=== PATIENT | male | born 1950 | race Caucasian/White ===

== ENCOUNTER 2019-03-09 20:58 | Inpatient (IN) | payer MEDICARE, OTHER ==
[~2019-03-09] VITALS: Ht 185.4 cm; Wt 65.8 kg
[2019-03-09] MEDS ORDERED: ONDANSETRON HCL INJ 2MG/ML 2ML 2 MG/ML VIAL IV STA (21:10)
[2019-03-09] MEDS ORDERED: MORPHINE SULFATE INJ 4 MG/ML INJ 1ML IV STA (21:10)
--- NOTE | 2019-03-09 21:10 | NUR ---
PT REFUSES BIPAP STATING "I DONT DO MASKS OR ANYTHING ON MY FACE"; PT ALSO REFUSED ABG; ER MD NOTIFIED AND SPOKE WITH PT; PT SIGNED AMA FORM FOR BIPAP AND ABG;
[2019-03-09] MEDS ORDERED: ASPIRIN 325 MG TAB PO ONE (21:15)
[2019-03-09 21:47] LABS: BASOPHILS % 0.2 % (0.0-1.0); EOSINOPHILS # (AUTO) 0.1 (0.0-0.4); EOSINOPHILS % 1.2 % (0.0-6.0); HEMATOCRIT 30.9 % (38.2-49.6); HEMOGLOBIN 8.7 g/dL (14.0-18.0); LYMPHOCYTES # (AUTO) 0.9 (1.0-3.2); LYMPHOCYTES % 10.6 % (18.0-39.1); MEAN CORPUSCULAR HEMOGLOBIN 20.9 pg (28-32); MEAN CORPUSCULAR HGB CONC 28.2 g/dL (31-35); MEAN CORPUSCULAR VOLUME 74.3 fL (81-99); NEUTROPHILS # (AUTO) 6.6 (2.1-6.9); NEUTROPHILS % 76.4 % (38.7-80.0); PLATELET COUNT 274 x10e3/uL (140-360); RED BLOOD COUNT 4.16 x10e6/uL (4.3-5.7); RED CELL DISTRIBUTION WIDTH 19.4 % (11.7-14.4)
[2019-03-09 22:04] LABS: ALBUMIN 2.8 g/dL (3.5-5.0); ALBUMIN/GLOBULIN RATIO 0.7 (0.8-2.0); ALKALINE PHOSPHATASE 136 IU/L (40-150); ANION GAP 14.5 mmol/L (8-16); BLOOD UREA NITROGEN 12 mg/dL (7-26); BUN/CREATININE RATIO 16 (6-25); CALCIUM 9.4 mg/dL (8.4-10.2); CARBON DIOXIDE 40 mmol/L (22-29); CHLORIDE 91 mmol/L (98-107); CREATINE KINASE 27 IU/L (30-200); CREATININE, SERUM 0.75 mg/dL (0.72-1.25); EST GLOMERULAR FILTRATION RATE > 60 ML/MIN (60-); GLUCOSE 125 mg/dL (74-118); POTASSIUM 4.5 mmol/L (3.5-5.1); SODIUM 141 mmol/L (136-145)
[2019-03-09 22:06] LABS: ALANINE AMINOTRANSFERASE < 6 IU/L (0-55)
--- NOTE | 2019-03-09 22:12 | Diagnostic Imaging Report ---
Examination: Single AP view of the chest. COMPARISON: None. INDICATION: Chest pain DISCUSSION: The lungs are well-inflated. Moderate right pleural effusion with airspace opacity of the lower and middle lobes. Enlargement of the cardiac silhouette with postsurgical changes of the mediastinum including multiple surgical clips and median sternotomy wires. Prominence of the pulmonary interstitium. No acute osseous abnormalities. Degenerative arthrosis of the acromioclavicular and glenohumeral joints. Cylindrical radiopacity along the left chest wall presumably external to the patient. IMPRESSION: Enlargement of the cardiac silhouette with interstitial pulmonary edema and a moderate right pleural effusion. Right lower and middle lobe airspace disease likely reflects passive atelectasis. Signed by: Dr. Morris Block M.D. on 03/09/2019 10:09 PM
[2019-03-09] MEDS ORDERED: ALBUTEROL/IPRATROPIUM 3 ML NEB NEB ONE (22:15)
[2019-03-09] MEDS ORDERED: AMIODARONE HCL 150 MG/100 ML BAG IV ONE (22:30)
[2019-03-09] MEDS ORDERED: AMIODARONE HCL 900 MG in DEXTROSE 5% 500ML 500 ML IV SCH (22:30)
[2019-03-09] MEDS ORDERED: MORPHINE SULFATE INJ 4 MG/ML INJ 1ML IV PRN (22:45)
[2019-03-09] MEDS ORDERED: AMIODARONE 900MG 500 ML IV SCH (22:45)
[2019-03-09] MEDS ORDERED: ONDANSETRON HCL INJ 2MG/ML 2ML 2 MG/ML VIAL IV PRN (22:45)
[2019-03-09] MEDS ORDERED: LEVOFLOXACIN 750MG/D5W 150ML 150 ML IV ONE (22:45)
[2019-03-09] MEDS ORDERED: AMIODARONE HCL 900 MG in DEXTROSE 5% 500ML 500 ML IV STA (23:24)
[2019-03-09] MEDS ORDERED: AMIODARONE HCL 150MG 100 ML ONE (23:36)
--- NOTE | 2019-03-09 23:40 | NUR ---
PT LEFT ROOM, D/C HIMSELF FROM MONITOR AND WAS FOUND OUTSIDE; ER MD AWARE; PT STATES "I WILL FIND A WAY TO SMOKE. YOU CANT STOP ME"
--- NOTE | 2019-03-10 00:31 | NUR ---
PT AGITATED STATING "I AM STRESSED. I EITHER GO TO MY ROOM OR I GO HOME" PT INFORMED THAT RN NEEDS TO GIVE REPORT BEFORE TRANSPORT AND PT STATES "WELL WHY DONT YOU GO AND FUCKING DO IT THEN?" - PT AGRESSIVE TOWARDS STAFF AND YELLING AT PEOPLE WALKING BY ROOM;
[2019-03-10 01:00] VITALS: BP 107/73
[2019-03-10] MEDS ORDERED: DEXTROSE 50% SYRINGE 50 ML IV PRN (01:00)
[2019-03-10] MEDS ORDERED: ALBUTEROL SULF 0.083% NEB SOLN 3 ML NEB NEB PRN (01:15)
[2019-03-10] MEDS ORDERED: IPRATROPIUM BROMIDE 0.02% 2.5 ML NEB NEB PRN (01:15)
[2019-03-10 01:39] VITALS: BP 107/73
[2019-03-10 02:00] VITALS: BP 92/48
[2019-03-10] MEDS ORDERED: MELATONIN3 MG PO (02:07)
[2019-03-10] MEDS ORDERED: NITROGLYCERIN0.4 MG SL (02:07)
[2019-03-10] MEDS ORDERED: METFORMIN HCL500 MG PO (02:07)
[2019-03-10] MEDS ORDERED: TRAZODONE HCL50 MG PO (02:07)
[2019-03-10] MEDS ORDERED: FUROSEMIDE20 MG PO (02:07)
[2019-03-10] MEDS ORDERED: RANEXA500 MG PO (02:07)
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
[2019-03-10 04:00] VITALS: BP 97/64
[2019-03-10 05:00] VITALS: BP 106/60
--- NOTE | 2019-03-10 05:00 | NUR ---
Pt has again removed EKG monitoring equipment therefore amiodarone gtt has been turned off as it is standard of practice that ekg monitoring must be in place during administration. Dr. Narendra Dietz is at the bedside and aware of this.
[2019-03-10] MEDS ORDERED: METHYLPREDNISOLONE SOD SUCC 125 MG/2ML VIAL IV SCH ×2 (06:00)
--- NOTE | 2019-03-10 06:08 | Diagnostic Imaging Report ---
Examination: Single AP view of the chest. COMPARISON: 03/09/2019 INDICATION: CHF DISCUSSION: The left lateral hemithorax is incompletely imaged. Unchanged moderate right pleural effusion with lower and middle lobe airspace opacities. Stable enlargement of the cardiac silhouette with postsurgical changes of the mediastinum. Interstitial prominence is also unchanged. No new consolidation. No acute osseous abnormality. IMPRESSION: Overall stable findings compatible with fluid overload. Signed by: Dr. Morris Block M.D. on 03/10/2019 6:05 AM
[2019-03-10] MEDS: ALBUTEROL SULF 0.083% NEB SOLN 3 ML NEB NEB SCH ×2 (06:45→11:00)
--- NOTE | 2019-03-10 07:00 | NUR ---
Report given to Manny Scanlon RN. Pt continues to refuse all treatments and monitoring equipment. Pt is sitting on his walker and only allowing us to place O2 NC at 3 L on him.
[2019-03-10] MEDS ORDERED: INSULIN REGULAR, HUMAN 100 UNIT/1 ML 3ML VIAL SQ SCH (07:30)
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
[2019-03-10] MEDS ORDERED: FUROSEMIDE INJ 10 MG/ML 4 ML VIAL IV SCH (09:00)
--- NOTE | 2019-03-10 09:01 | NUR ---
Patient refused all treatment, patient said to get out of his way and that he was going outside to smoke. Patient became very agitated and continued to walk outside despite staff attempts to deescalate the situation. Dr. Sanderson tried to talk to the patient on the phone but the patient refused. Patient is now back in his room.
[2019-03-10] MEDS ORDERED: FUROSEMIDE INJ 10 MG/ML 2 ML VIAL IV SCH (11:15)
--- NOTE | 2019-03-10 12:22 | NUR ---
patient expressed the desire to be a full DNAR witnessed by myself, Dr. Sanderson and Dr. Vides
[2019-03-10] MEDS ORDERED: ACETAMINOPHEN 325 MG TAB PO PRN (12:30)
--- NOTE | 2019-03-10 12:32 | NUR ---
Patient transferred to the floor from the ICU. It was reported from ICU nurse that patient has been refusing all care, labs, meds, tele etc. MD is aware. Patient is now on the floor and states he will allow labs to be drawn and take medications. He is oriented x 3 and awake. He is sitting up in wheelchair, 3lNC. Patient was oriented to the room and explained how to use the call light. He denies needing anything at this time.
--- NOTE | 2019-03-10 13:14 | NUR ---
melter supervisor electric arc furnace called and said patient is downstairs in the lobby and has signed AMA paperwork. Patient continues to refuse treatment and go outside and smoke.
--- NOTE | 2019-03-10 14:32 | Progress Note ---
DATE: Quick Progress Note SUBJECTIVE: The patient this morning wanted to leave against medical advice on several occasions and refuses to stay inside the hospital. He wants to go outside and smoke. He is trying multiple times in terms of leaving the hospital against medical advice. I cannot hold him against his will. I recommended that he is not advisable for him to be discharged due to the fact that he is hypoxic and he was found to be in atrial fibrillation with RVR. My advice to him was for him to stay very compliant and to stay at the hospital to get treated. He has been very verbally and physically abusive to the nursing staff. I have received several phone calls in relation to his behavior. I had a long discussion with him with the nurse present about him being much more compliant and having better behavior. He verbalized he will, and we will continue to follow him very closely. I advised him not to leave against medical advice. MD CARLOS Carbajal/KENYATTA /[id number]
--- NOTE | 2019-03-10 15:06 | NUR ---
PULMONARY MEDICINE DATE OF ENCOUNTER: 03/10/19 SUBJECTIVE Patient was seen during the night. Patient was having the need to get up and go smoking. He would refuse to stay seated, incurring a fall risk since he had many wires attached to him in the ER. He would often stay standing, hunched over rather than sitting/laying down. He started cursing at staff later. REVIEW OF SYSTEMS: no headaches, no bleed PHYSICAL EXAMINATION: VITAL SIGNS: Vital signs reviewed per the electronic record GENERAL: Alert, talkative HEENT: Normocephalic and atraumatic. NECK: Supple. Throat midline. LUNGS: Bilateral air entry moderate, although limited effort and tough to evaluate. CARDIOVASCULAR: S1 and S2. No murmurs, rubs, or gallops. ABDOMEN: Soft, sensitive but nontender EXTREMITIES: No clubbing. No cyanosis. 2 - 3+ edema. INTEGUMENT: There are stasis changes to legs. no weeping LABORATORY DATA: refused IMPRESSION AND PLAN: 1. Acute/chronic respiratory failure, on oxygen. BiPAP intolerant. 2. Abnormal chest radiography, pulmonary edema suggested. 3. Moderate right-sided pleural effusion. 4. Possible pneumonia. 5. Atrial fibrillation with mildly rapid ventricular rate. 6. History of esophageal cancer May 2018, status post chemotherapy and radiation. 7. Chronic heart failure. 8. Limited medical history. 9. Chronic smoking. Oxygen per protocol Amiodarone drip is ongoing. Diuresis as tolerated. We will consider him for thoracentesis Patient later left AMA Thank you very much, Dr. Sanderson, for allowing me a chance to participate in the care of Mr. Mccarthy. Please call for any questions.
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
[2019-03-10] MEDS ORDERED: FUROSEMIDE 20 MG TAB PO SCH (17:00)
[2019-03-10] MEDS ORDERED: METOPROLOL TARTRATE 25 MG TAB PO SCH ×2 (17:00)
[2019-03-10] MEDS ORDERED: RANOLAZINE 500 MG TABSR PO SCH (17:00)
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
[2019-03-10] MEDS ORDERED: TRAZODONE HCL 50 MG TAB PO SCH (21:00)
[2019-03-10] MEDS ORDERED: LEVOFLOXACIN 500MG/D5W 100ML 100 ML IV SCH (22:00)
[2019-03-11] MEDS ORDERED: NICOTINE 21 MG/EA PATCH TOP SCH (09:00)
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
== END 2019-03-10 13:31 | disposition home or self-care (01) | DRG 291 ==
LOC: ER 20:58 → ERHOLD 23:36 → ICU 03-10 01:00 → MED/SURG2 03-10 12:18
PROVIDERS: ADMIT Internal Medicine; ATTEND Internal Medicine
DX: I11.0 Hypertensive heart disease with heart failure (principal); J96.20 Acute and chronic respiratory failure, unspecified whether with hypoxia or hypercapnia; J18.9 Pneumonia, unspecified organism; J44.0 Chronic obstructive pulmonary disease with (acute) lower respiratory infection; J44.1 Chronic obstructive pulmonary disease with (acute) exacerbation; F17.210 Nicotine dependence, cigarettes, uncomplicated; Z99.81 Dependence on supplemental oxygen; I48.2 Chronic atrial fibrillation; Z91.14 Patient's other noncompliance with medication regimen; I50.813 Acute on chronic right heart failure; I27.81 Cor pulmonale (chronic); D64.9 Anemia, unspecified; Z85.01 Personal history of malignant neoplasm of esophagus; Z91.19 Patient's noncompliance with other medical treatment and regimen
CPT/HCPCS: 36415; 71045; 80053; 82550; 82553; 83880; 84484; 85025; 93005; 93306; 94640; 99285; J7060